=== PATIENT | female | born 2000 | race Hispanic/Latino ===

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

== ENCOUNTER 2022-03-06 20:54 | Emergency (ER) | payer OTHER ==
[2022-03-06] MEDS ORDERED: Ibuprofen 800 MG TAB ONE (22:08)
[2022-03-06] MEDS ORDERED: Benzonatate 100 MG CAP ONE (22:16)
== END 2022-03-06 22:25 | disposition home or self-care (01) ==
LOC: ERS 20:54
DX: U07.1 COVID-19 (principal)
CPT/HCPCS: 71046; 93005

== ENCOUNTER 2022-09-29 00:44 | Emergency (ER) | payer OTHER ==
[2022-09-29] MEDS ORDERED: Boostrix 0.5 ML (Tdap) VIAL (>/=7 yrs of age) ONE (01:34)
== END 2022-09-29 01:54 | disposition home or self-care (01) ==
LOC: ERS 00:44
DX: S61.210A Laceration without foreign body of right index finger without damage to nail, initial encounter (principal); W26.0XXA Contact with knife, initial encounter; Z23 Encounter for immunization
CPT/HCPCS: 12001; 90471; 90715

== ENCOUNTER 2024-04-24 21:50 | Emergency (ER) | payer OTHER, SELFPAY | END 2024-04-25 00:57 | disposition home or self-care (01) | LOC: ERS 21:50 | DX: H66.92 Otitis media, unspecified, left ear (principal) ==